=== PATIENT | male | born 1955 | race Caucasian/White ===

== ENCOUNTER 2018-06-02 12:45 | Emergency (ER) | payer OTHER ==
[2018-06-02 12:56] VITALS: BP 129/69
--- NOTE | 2018-06-02 13:01 | UC ---
FLU HPI - HPI Summary HPI Summary: Patient had a cystoscopy done 2 days ago. Experiencing some body aches, fever and chills later in the evening. He denies any symptoms of upper respiratory illness. He did not get a flu shot in fall. He denies any difficulty with urination and no burning on urination. - History of Current Complaint Chief Complaint: UCGeneralIllness Stated Complaint: FLU LIKE SYMPTOMS Time Seen by Provider: 06/02/18 12:59 Hx Obtained From: Patient Onset/Duration: Sudden Onset Severity Currently: Mild Severity Initially: Mild Pain Intensity: 0 Associated Signs & Symptoms: Positive: Fever, Myalgia, Headache Related Hx: Possible Flu/Infectious Exposure - Allergy/Home Medications Allergies/Adverse Reactions: Allergies Allergy/AdvReac Type Severity Reaction Status Date / Time MILK Allergy Mild See Comment Uncoded 06/02/18 12:56 Home Medications: Home Medications Fluticasone/Vilanterol MDI(NF) [Breo Ellipta MDI 200/25(NF)] 1 puff INH [History] PMH/Surg Hx/FS Hx/Imm Hx Previously Healthy: Yes - Surgical History Surgical History: Yes Surgery Procedure, Year, and Place: 2004-PARAESOPHAGEAL HERNIA REPAIR-[facility] [place]. PINKY FINGER-LEFT-. TONSILLECTOMY- A CHILD - Family History Known Family History: Positive: Non-Contributory - Social History Alcohol Use: Occasionally Substance Use Type: None Smoking Status (MU): Never Smoked Tobacco Review of Systems All Other Systems Reviewed And Are Negative: Yes Constitutional: Positive: Fever, Chills Musculoskeletal: Positive: Myalgia Neurological: Positive: Headache - Mild headache Is Patient Immunocompromised?: No Physical Exam Triage Information Reviewed: Yes Appearance: Well-Appearing, No Pain Distress, Well-Nourished Vital Signs: Initial Vital Signs Temp 98 F 06/02/18 12:53 Pulse 48 06/02/18 12:53 Resp 16 06/02/18 12:53 BP 129/69 06/02/18 12:53 Pulse Ox 99 06/02/18 12:53 Vital Signs Reviewed: Yes Eye Exam: Normal ENT Exam: Normal Neck exam: Normal Respiratory Exam: Normal Cardiovascular Exam: Normal Abdominal Exam: Normal Musculoskeletal Exam: Normal Neurological Exam: Normal Psychological Exam: Normal Skin Exam: Normal Flu Course/Dx - Course Course Of Treatment: Patient has been comfortable here. Rapid flu test was negative. I believe he has an upper respiratory illness and may decrease symptoms accordingly. - Differential Dx/Diagnosis Differential Diagnosis/HQI/PQRI: Upper Respiratory Infection Provider Diagnosis: URI (upper respiratory infection) Discharge - Sign-Out/Discharge Documenting (check all that apply): Patient Departure All imaging exams completed and their final reports reviewed: No Studies - Discharge Plan Condition: Good Disposition: HOME Patient Education Materials: Upper Respiratory Infection (DC) Referrals: Sahil Quinn MD [Primary Care Provider] - Additional Instructions: Increase fluids, Tylenol every 4 hours and Motrin every 6 or 8 hours for pain, body aches or fever. Definite follow-up with your primary care provider in 3 or 4 days if no improvement. - Billing Disposition and Condition Condition: GOOD Disposition: Home - Attestation Statements Provider Attestation: I was available for consult. This patient was seen by the [facility]. The patient was not presented to, seen by, or examined by me. -Som
[2018-06-02 13:27] LABS: Influenza A Molecular NEGATIVE (Negative); Influenza B Molecular NEGATIVE (Negative)
== END 2018-06-02 13:30 | disposition home or self-care (01) ==
LOC: UCEAST 12:45
DX: J06.9 Acute upper respiratory infection, unspecified (principal)
CPT/HCPCS: 99211; G0463